=== PATIENT | female | born 1970 | race Caucasian/White ===

== ENCOUNTER 2018-05-24 17:02 | Emergency (ER) | payer OTHER ==
[~2018-05-24] VITALS: Ht 165.1 cm; Wt 54.0 kg
--- NOTE | 2018-05-24 17:46 | NUR ---
Patient discharged to home in stable conditon. Written and verbal after care instructions given. Patient verbalizes understanding of instructions.
== END 2018-05-24 17:49 | disposition home or self-care (01) ==
LOC: ER 17:06
DX: S61.234A Puncture wound without foreign body of right ring finger without damage to nail, initial encounter (principal); W26.8XXA Contact with other sharp object(s), not elsewhere classified, initial encounter; Y93.89 Activity, other specified; Y92.89 Other specified places as the place of occurrence of the external cause; Y99.8 Other external cause status
CPT/HCPCS: A4663

== ENCOUNTER 2019-03-10 19:28 | Emergency (ER) | payer OTHER ==
[~2019-03-10] VITALS: Ht 165.1 cm; Wt 54.0 kg
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
[2019-03-10] MEDS ORDERED: NEOMY/BACITRA/POLYMYXIN B OINT UD PACKET TP ONE ×2 (20:00→20:03)
--- NOTE | 2019-03-10 20:16 | NUR ---
ABLE TO TOLERATE WOUND CLEANING AND DRESSING. ASEPSIS OBSERVED. ABLE TO TOLERATE PAIN CLEANED USING BETADINE APPLIED TRIPLE ABX OINTMENT ORDERED. COVERED WITH GAUZE AND TRANSPARENT DRESSING NO DRAINAGE, +ERYTHEMA, MULTIPLE LINEAR SUPERFICIAL ABRASIONS. Patient discharged to home in stable conditon. Written and verbal after care instructions given. Patient verbalizes understanding of instructions. AMBULATORY WITH STABLE GAIT.
[2019-03-10 20:18] VITALS: BP 110/75
== END 2019-03-10 20:15 | disposition home or self-care (01) ==
LOC: ER 19:31
DX: S10.91XA Abrasion of unspecified part of neck, initial encounter (principal); W50.4XXA Accidental scratch by another person, initial encounter; Y93.89 Activity, other specified; Y92.89 Other specified places as the place of occurrence of the external cause; Y99.8 Other external cause status
CPT/HCPCS: A4663

== ENCOUNTER 2019-04-15 14:12 | Emergency (ER) | payer BC, OTHER ==
[~2019-04-15] VITALS: Ht 165.1 cm; Wt 54.4 kg
[2019-04-15] MEDS: IBUPROFEN 600 MG TABLET PO ONE (14:33)
[2019-04-15] MEDS ORDERED: IBUPROFEN 600 MG TABLET ONE (14:35)
--- NOTE | 2019-04-15 15:38 | NUR ---
Patient discharged to home in stable conditon. Written and verbal after care instructions given. Patient verbalizes understanding of instructions.
== END 2019-04-15 15:41 | disposition home or self-care (01) ==
LOC: ER 14:13
DX: S92.351A Displaced fracture of fifth metatarsal bone, right foot, initial encounter for closed fracture (principal); X50.1XXA Overexertion from prolonged static or awkward postures, initial encounter; Y93.89 Activity, other specified; Y92.89 Other specified places as the place of occurrence of the external cause; Y99.8 Other external cause status
CPT/HCPCS: 73630; A4663

== ENCOUNTER 2019-05-15 11:19 | Outpatient (CLI) | payer BC, OTHER | END 2019-05-15 23:59 | disposition home or self-care (01) | LOC: RAD 11:19 | PROVIDERS: ATTEND Orthopaedic Surgery Sports Medicine | DX: S92.351D Displaced fracture of fifth metatarsal bone, right foot, subsequent encounter for fracture with routine healing (principal); X58.XXXD Exposure to other specified factors, subsequent encounter | CPT/HCPCS: 73630 ==

== ENCOUNTER 2019-08-21 10:08 | Emergency (ER) | payer BC, OTHER ==
[~2019-08-21] VITALS: Ht 165.1 cm; Wt 56.7 kg
[2019-08-21] MEDS ORDERED: TETRACAINE HCL 0.5% OPHT DROP 2 ML BOTTLE ONE (10:39)
[2019-08-21] MEDS ORDERED: FLUORESCEIN SODIUM 1 MG STRIP ONE (10:40)
[2019-08-21] MEDS ORDERED: ERYTHROMYCIN 0.5% OPHT OINT 3.5 GM TUBE ONE (10:40)
[2019-08-21] MEDS ORDERED: TETRACAINE HCL 0.5% OPHT DROP 2 ML BOTTLE OP ONE (10:45)
[2019-08-21] MEDS ORDERED: ERYTHROMYCIN 0.5% OPHT OINT 3.5 GM TUBE EACHEYE ONE (10:45)
[2019-08-21] MEDS ORDERED: FLUORESCEIN SODIUM 1 MG STRIP OP ONE (10:45)
[2019-08-21] MEDS ORDERED: diphenhydrAMINE 25 MG CAP PO ONE ×2 (10:57→11:00)
== END 2019-08-21 11:04 | disposition home or self-care (01) ==
LOC: ER 10:08
DX: S05.01XA Injury of conjunctiva and corneal abrasion without foreign body, right eye, initial encounter (principal); H10.11 Acute atopic conjunctivitis, right eye; J31.0 Chronic rhinitis; X58.XXXA Exposure to other specified factors, initial encounter; Y93.89 Activity, other specified; Y92.89 Other specified places as the place of occurrence of the external cause; Y99.8 Other external cause status
CPT/HCPCS: A4663; Q0163

== ENCOUNTER 2020-10-08 23:30 | Emergency (ER) | payer BC, OTHER ==
[~2020-10-08] VITALS: Ht 165.1 cm; Wt 55.8 kg
--- NOTE | 2020-10-08 23:59 | NUR ---
ERMD at bedside for MSE
--- NOTE | 2020-10-09 00:54 | NUR ---
Patient discharged to home in stable condition. Written and verbal after care instructions given. Patient verbalizes understanding of instructions. Stressed follow up or return to ER for worsening s/s. Patient ambulated with steady gait. A/OX4. All belongings returned to patient prior to departure.
[2020-10-09 00:55] VITALS: BP 118/63
== END 2020-10-09 00:55 | disposition home or self-care (01) ==
LOC: ER 23:31
DX: S60.022A Contusion of left index finger without damage to nail, initial encounter (principal); V48.3XXA Unspecified car occupant injured in noncollision transport accident in nontraffic accident, initial encounter; Y92.89 Other specified places as the place of occurrence of the external cause
CPT/HCPCS: 73130; A4663

== ENCOUNTER → 2022-02-09 | Outpatient (CLI) | payer OTHER | END | disposition home or self-care (01) | LOC: RAD 15:11 | PROVIDERS: ATTEND Internal Medicine | DX: I73.9 Peripheral vascular disease, unspecified (principal) ==

== ENCOUNTER 2022-05-31 08:12 | Emergency (ER) | payer BC ==
[~2022-05-31] VITALS: Ht 157.5 cm; Wt 54.4 kg
--- NOTE | 2022-05-31 09:36 | NUR ---
COVID19 swab sent to lab
[2022-05-31 10:45] LABS: *BILIRUBIN,URIN NEGATIVE (NEGATIVE); *CLARITY,URINE CLEAR (CLEAR); *COLOR,URINE YELLOW (YELLOW); *KETONES,URINE 1+ (NEGATIVE); *UROBILINOGEN,URINE 0.2 E.U./dl (NORMAL); LEUKOCYTE ESTERASE ,URINE NEGATIVE (NEGATIVE); NITRITE, URINE NEGATIVE (NEGATIVE); UGLUCOSE NEGATIVE (NEGATIVE)
[2022-05-31 11:00] LABS: *BLOOD, URINE TRACE (NEGATIVE)
[2022-05-31 11:19] VITALS: BP 116/71
--- NOTE | 2022-05-31 11:19 | NUR ---
Patient discharged to home in stable condition. Written and verbal after care instructions given. Patient verbalizes understanding of instructions. Stressed follow up or return to ER for worsening s/s.
[2022-05-31 11:21] LABS: BACTERIA,URINE NONE SEEN /HPF (NONE SEEN); RBC,URINE 0-3 /HPF (0-3); SQUAMOUS EPITHELIAL CELL,UR FEW /HPF (NONE SEEN); WBC,URINE 0-3 /HPF (0-3)
== END 2022-05-31 11:20 | disposition home or self-care (01) ==
LOC: ER 08:12
DX: U07.1 COVID-19 (principal); J02.9 Acute pharyngitis, unspecified
CPT/HCPCS: 87086; A4663

== ENCOUNTER 2022-11-20 14:39 | Emergency (ER) | payer BC, OTHER ==
[~2022-11-20] VITALS: Ht 157.5 cm; Wt 54.4 kg
--- NOTE | 2022-11-20 15:03 | NUR ---
Dr Vincent at the bedside for MSE.
[2022-11-20] MEDS ORDERED: CEPH500T PO (15:13)
[2022-11-20 15:18] VITALS: BP 108/57
== END 2022-11-20 15:19 | disposition home or self-care (01) ==
LOC: ER 14:40
DX: L03.011 Cellulitis of right finger (principal); Z79.899 Other long term (current) drug therapy
CPT/HCPCS: A4663

== ENCOUNTER 2022-12-03 19:47 | Emergency (ER) | payer BC, OTHER ==
[~2022-12-03] VITALS: Ht 165.1 cm; Wt 54.4 kg
[~2022-12-03 19:47] MED LIST: CEPH500T PO
[2022-12-03] MEDS ORDERED: LIDOCAINE HCL 2% 20 ML VIAL IJ ONE (20:15)
[2022-12-03] MEDS ORDERED: LIDOCAINE HCL 2% 20 ML VIAL ONE (20:18)
[2022-12-03 20:29] LABS: HEMATOCRIT 36.5 % (31.2-41.9); MEAN CORPUSCULAR HEMOGLOBIN 30.1 uug (24.7-32.8); MEAN CORPUSCULAR VOLUME 89.4 fL (75.5-95.3); PLATELET COUNT (AUTO) 129 K/uL (179-408)
[2022-12-03] MEDS ORDERED: SULF1TAB48 PO (21:22)
[2022-12-03] MEDS ORDERED: SYRI-29 MC (21:29)
[2022-12-03] MEDS ORDERED: MECO10006 IM (21:29)
[2022-12-03] MEDS ORDERED: CYANOCOBALAMIN 1000 MCG/ML VIAL IM ONE (21:30)
[2022-12-03] MEDS ORDERED: SULFAMETH/TRIMETH 800/160 MG TABLET PO ONE (21:30)
[2022-12-03] MEDS ORDERED: CYANOCOBALAMIN 1000 MCG/ML VIAL ONE (21:37)
[2022-12-03] MEDS ORDERED: SULFAMETH/TRIMETH 800/160 MG TABLET ONE (21:37)
--- NOTE | 2022-12-03 21:50 | NUR ---
Patient a/o x 4. NAD noted. Ambulatory with a steady gait. All belongings with patient. Patient discharged to home in stable condition. Written and verbal after care instructions given. Patient verbalizes understanding of instructions. Stressed follow up or return to ER for worsening s/s.
== END 2022-12-03 21:50 | disposition home or self-care (01) ==
LOC: ER 19:47
DX: L03.011 Cellulitis of right finger (principal); D72.819 Decreased white blood cell count, unspecified; D69.6 Thrombocytopenia, unspecified; E53.8 Deficiency of other specified B group vitamins; Z79.899 Other long term (current) drug therapy
CPT/HCPCS: 99283; 10060; 82607; 85025; 36415; 96372; J3420; J3490; A4663

== ENCOUNTER 2023-08-28 17:11 | Emergency (ER) | payer BC, OTHER ==
[~2023-08-28] VITALS: Ht 165.1 cm; Wt 56.7 kg
[~2023-08-28 17:11] MED LIST changes: +MECO10006 IM; +SULF1TAB48 PO; +SYRI-29 MC
[2023-08-28] MEDS ORDERED: METOCLOPRAMIDE HCL 10 MG/2 ML VIAL ONE (17:49)
[2023-08-28] MEDS ORDERED: KETOROLAC TROMETHAMINE 15 MG INJ ONE (17:49)
[2023-08-28] MEDS: KETOROLAC TROMETHAMINE 15 MG INJ IVP ONE (17:56)
[2023-08-28] MEDS: METOCLOPRAMIDE HCL 10 MG/2 ML VIAL IV ONE (17:56)
[2023-08-28 18:05] LABS: ALANINE AMINOTRANSFERASE 24 U/L (14-59); ALBUMIN 3.6 g/dL (3.4-5.0); ALKALINE PHOSPHATASE 98 U/L (50-136); ASPARTATE AMINOTRANSFERASE 19 U/L (15-37); BILIRUBIN,DIRECT 0.2 mg/dL (0.0-0.2); BILIRUBIN,TOTAL 0.5 mg/dL (0.2-1.0); CALCIUM 9.2 mg/dL (8.5-10.1); CARBON DIOXIDE 32 mmol/L (21-32); CHLORIDE 104 mmol/L (98-107); CREATININE 0.6 mg/dL (0.6-1.3); GLUCOSE 88 mg/dL (74-106); LIPASE 34 U/L (16-77); POTASSIUM 3.8 mmol/L (3.5-5.1); SODIUM SERUM 139 mmol/L (136-145); TOTAL PROTEIN, SERUM 7.1 g/dL (6.4-8.2); UREA NITROGEN, BLOOD 15 mg/dL (7-18)
[2023-08-28 18:11] LABS: PREGNANCY TEST SERUM QUAN 3 miul/L (0-6)
[2023-08-28 18:12] LABS: BASOPHILS % (AUTO) 0.2 % (0.0-2.0); DIFFERENTIAL COMMENT 0; EOSINOPHILS # (AUTO) 0.1 K/uL (0.0-0.7); EOSINOPHILS % (AUTO) 2.1 % (0.0-7.0); HEMATOCRIT 38.3 % (31.2-41.9); LYMPHOCYTES # (AUTO) 0.5 K/uL (0.8-4.8); MEAN CORPUSCULAR HEMOGLOBIN 30.4 uug (24.7-32.8); MEAN CORPUSCULAR HGB CONC 34 g/dL (32.3-35.6); MEAN CORPUSCULAR VOLUME 89.8 fL (75.5-95.3); MONOCYTES # (AUTO) 0.7 K/uL (0.1-1.30); NEUTROPHILS # (AUTO) 4.1 K/uL (1.8-8.9); NEUTROPHILS % (AUTO) 75.7 % (38.5-71.5); PLATELET COUNT (AUTO) 142 K/uL (179-408); RED BLOOD CELL COUNT(AUTO) 4.27 MIL/uL (3.63-4.92); RED CELL DISTRIBUTION WIDTH 13.8 % (12.3-17.7); WHITE BLOOD COUNT (AUTO) 5.5 K/uL (3.8-11.8)
[2023-08-28] MEDS ORDERED: METO5TAB87 PO (19:25)
[2023-08-28] MEDS ORDERED: OMEP40CA21 PO (19:25)
[2023-08-28 19:43] VITALS: BP 110/72; TEMP 97.9; O2SAT 98
== END 2023-08-28 19:44 | disposition home or self-care (01) ==
LOC: ER 17:13
DX: K29.70 Gastritis, unspecified, without bleeding (principal); K21.9 Gastro-esophageal reflux disease without esophagitis; R10.13 Epigastric pain; R10.2 Pelvic and perineal pain; Z79.899 Other long term (current) drug therapy
CPT/HCPCS: 99285; 74176; 96374; 76705; 96375; 80076; 80048; 83690; 85025; 85730; 84484; 84702; 36415; J1885; J2765; A4606; A4663